=== PATIENT | female | born 1985 | race Caucasian/White ===

== ENCOUNTER 2018-06-21 18:49 | Emergency (ER) | payer BC ==
[~2018-06-21] VITALS: Ht 170.2 cm; Wt 104.3 kg
[2018-06-21] MEDS ORDERED: LITH300T2 PO (19:02)
[2018-06-21] MEDS ORDERED: INSU100C4 (19:02)
[2018-06-21] MEDS ORDERED: TOPI25TA PO (19:02)
[2018-06-21] MEDS ORDERED: LEVO125T97 PO (19:02)
[2018-06-21] MEDS ORDERED: LITH300T3 PO (19:02)
--- NOTE | 2018-06-21 19:06 | NUR ---
Dr. Cates at bedside for MSE.
[2018-06-21] MEDS ORDERED: HYDROMORPHONE 1 MG/1 ML DISP.SYRIN IV ONE (19:15)
[2018-06-21] MEDS ORDERED: IV NORMAL SALINE 1000 ML BAG IV ONE (19:15)
[2018-06-21] MEDS ORDERED: ONDANSETRON 4 MG/2 ML VIAL IV ONE (19:15)
[2018-06-21 19:31] LABS: CREATININE 0.9 mg/dL (0.6-1.3); POTASSIUM 3.8 mmol/L (3.5-5.1)
[2018-06-21] MEDS ORDERED: HYDROMORPHONE 2 MG/1 ML DISP.SYRIN ONE (19:32)
[2018-06-21] MEDS ORDERED: ONDANSETRON 4 MG/2 ML VIAL ONE (19:32)
--- NOTE | 2018-06-21 19:59 | NUR ---
Pt states her headache is feeling better now about 5/10, and nausea is gone.
--- NOTE | 2018-06-21 21:09 | NUR ---
Patient discharged to home in stable conditon. Written and verbal after care instructions given. Patient verbalizes understanding of instructions. Patient ambulated out of ER with steady gait, no acute signs of distress, VSS, all belongings taken, IV site discontinued.
[2018-06-21 21:10] VITALS: BP 157/91
== END 2018-06-21 21:11 | disposition home or self-care (01) ==
LOC: ER 18:51
DX: G43.909 Migraine, unspecified, not intractable, without status migrainosus (principal); E10.9 Type 1 diabetes mellitus without complications; E03.9 Hypothyroidism, unspecified; Z88.5 Allergy status to narcotic agent; Z88.8 Allergy status to other drugs, medicaments and biological substances; Z79.4 Long term (current) use of insulin
CPT/HCPCS: 36415; 80048; 96361; 96374; 96375; 99285; J1170; J2405; A4663; J7030